=== PATIENT | male | born 1945 | race Caucasian/White ===

== ENCOUNTER 2017-06-19 08:47 | Day surgery (SDC) | payer MEDICARE ==
[~2017-06-19 08:47] MED LIST: ALLOPURINOL100 M1 PO; ANTI-ANXIETY MED PO; ATENOLOL25 M1 PO; GLUCOSAMINE CHO1 CAP PO; KEFLEX500 M1 PO; METAMUCIL MULTI1 CAP PO; PRADAXA150 MG PO
[2017-06-19 11:37] VITALS: BP 165/80
== END 2017-06-19 10:47 | disposition home or self-care (01) ==
LOC: SDC 08:47
PROVIDERS: Ophthalmology
PROC: 085J3ZZ Destruction of Right Lens, Percutaneous Approach (ICD-10-PCS; 2017-06-19)
PROC: 085K3ZZ Destruction of Left Lens, Percutaneous Approach (ICD-10-PCS; principal; 2017-06-19 09:30)
DX: H26.40 Unspecified secondary cataract (principal)